=== PATIENT | female | born 1995 | race Caucasian/White ===

== ENCOUNTER 2022-02-15 10:19 | Outpatient (CLI) | payer BC, SELFPAY ==
--- NOTE | 2022-02-15 10:38 | US_ITS ---
WS: [id number] ULTRASOUND LEFT BREAST HISTORY: LT SIDE BREAST LUMP 9 O'CLOCK COMPARISON: None available. TECHNIQUE: 2-D and Doppler. There is no underlying abnormality near the 8:00 or 9:00 axis to correspond to the palpable nodule. N o mass identified. No skin thickening. US/US breast LT limited* [id number] IMPRESSION: BI-RADS: 1-Negative FOLLOW-UP: See Report No additional imaging or follow-up necessary. No ultrasound abnormality LEFT br east.
== END 2022-02-15 10:20 | disposition home or self-care (01) ==
LOC: RAD 10:28
PROVIDERS: Visit Provider Family Medicine
DX: N63.25 Unspecified lump in the left breast, overlapping quadrants (principal)
CPT/HCPCS: 76642

== ENCOUNTER 2023-10-30 20:03 | Emergency (ER) | payer BC, SELFPAY ==
[2023-10-30] VITALS (7 sets, daily range): BP systolic 122–169; BP diastolic 75–109; PULSE 75–134; RESP 18; TEMP 36.9; O2SAT 95–99; BMI 32.3
--- NOTE | 2023-10-30 20:47 | ECG_ITS ---
[facility] Test Date: 2023-10-30 Pat Name: Naa Henderson Department: Room: Gender: Female Blue Split Trimmer: : 1995 Requested By: Demetri Thomas Order Number: [id number] Faith MD: Cuba Aguero M.D. Measurements Intervals [place] Rate: 76 P: 54 NE: 147 QRS: -9 QRSD: 106 T: 34 QT: 309 QTc: 349 Interpretive Statements SINUS RHYTHM LOW QRS VOLTAGE IN PRECORDIAL LEADS [QRS DEFLECTION < 1.0 mV IN CHEST LEADS] INCOMPLETE RIGHT BUNDLE BRANCH BLOCK [90+ ms QRS DURATION, TERMINAL R IN V1/V2, 40+ ms S IN I/aVL/V4/V5/V6] NONSPECIFIC T-WAVE ABNORMALITY No previous ECG available for comparison Electronically Signed On 10-30-2023 21:49:00 CDT by Cuba Aguero M.D. [id number]
[2023-10-30 21:51] LABS: Basophils # 0.1 10^3/uL (0.0-0.1); Basophils % 0.5 %; Eosinophils # 0.1 10^3/uL (0.0-0.8); Eosinophils % 0.8 %; Hematocrit 41.6 % (36-47); Lymphocytes % 30.2 %; Mean Corpuscular HGB Conc 33.7 g/dL (30-55); Mean Corpuscular Volume 86.3 fl (85-98); Mean Platelet Volume 8.7 fL (7.4-10.4); Monocytes # 0.7 10^3/uL (0.2-0.9); Neutrophils % 63.2 %; Nucleated Red Blood Cells % 0 %; Platelet Count 353 10^3/cmm (157-399); Red Blood Count 4.82 10^6/uL (3.85-5.65); Red Cell Distribution Width 11.8 % (12.1-15.1); White Blood Count 13.26 10^3/uL (3.29-11.43)
[2023-10-30 22:04] LABS: HCG, Serum Qual Negative (Negative)
[2023-10-30] MEDS: sodium chloride 0.9% 1,000 ML 999 ML IV (22:05)
--- NOTE | 2023-10-30 22:07 | ED_ITS ---
Documented by User: SHAKIR West 10/31/23 00:06 HPI - Dizziness 2 General: Chief Complaint: Dizziness Stated Complaint: dizzy, light headed, headache Time Seen by Provider: 10/30/23 21:18 Source: patient Mode of arrival: ambulatory Limitations: no limitations History of Present Illness: HPI Narrative: Patient is a 28-year-old female who presents to the emergency department planing of dizziness onset 2 days. Patient reports she had an initial episode on Monday of dizziness associated with nausea and a headache. She states this episode resolved spontaneously and she was okay yesterday. Today she had another episode of dizziness, as she states it was a combination of room spinning and lightheadedness. She states the dizziness is worse when she stands up. She also associated an occipital headache as well as associated nausea. She reports history of migraine headaches and felt that this 1 was similar, just worse than usual. It is improved at this time and she no longer feels nauseous or dizzy. She does report a history of anxiety and panic attacks. She denies possibility of . She does note that she started a new control medication last week. She denies any other medication changes at this time. She further denies any breathing difficulties, chest pains, palpitations, vomiting, visual changes, distal neurological complaints, or any other symptoms. She also comments that her fluid intake is inadequate and she is trying to work on it. MD elicited complaint: dizziness Onset (ago): day(s) (2) Timing: sudden onset and intermittent Severity: moderate Description: room spinning and lightheadedness Context: change in medication History of similar symptoms: Yes Exacerbating factors: change in body position Associated symptoms: Reports headache(s) and nausea; Denies chest pain, chills, palpitations or vomiting Associated neuro symptoms: Deny numbness in extremities Review of Systems 2 General: Reports: 10 or more systems reviewed and unremarkable except in HPI and below Const: Denies: fever(s), chills or fatigue Eyes: Denies: change in vision ENMT: Denies: throat pain, ear or mastoid pain or nasal discharge Card: Reports: lightheadedness; Denies: chest pain, palpitations or swelling of feet/ankles Resp: Denies: dyspnea, productive cough or wheezing GI: Reports: nausea; Denies: abdominal pain, vomiting, diarrhea or constipation : Denies: flank pain, difficulty voiding, dysuria or urinary frequency Musc: Denies: neck pain, back pain or joint pain Skin/Breast: Denies: rash Neuro: Reports: headache(s) and dizziness; Denies: numbness in extremities or weakness in extremities Physical Exam 2 Const: COMMON NORMALS: no acute distress, patient oriented x3 and no limitations GENERAL APPEARANCE: cooperative, comfortable and well developed ORIENTATION/CONSCIOUSNESS: Yes awake, Yes oriented to person, Yes oriented to place and Yes oriented to time HENMT: COMMON NORMALS: normocephalic, atraumatic, hearing grossly normal bilaterally, external ears normal, EAC's normal, TM's normal bilaterally and Normal external nose present HEAD & SCALP: normocephalic and atraumatic F ROSENDO & SINUS: normal facial exam NOSE: Normal external nose present E XTERNAL EAR: Yes external ears normal EXTERNAL AUDITORY CANAL: EAC's normal TYMPANIC MEMBRANE: TM's normal bilaterally Eye: COMMON NORMALS: Equal, round and reactive pupils present, EOMs intact bilaterally and conjunctivae normal CONJUNCTIVA: Yes conjunctivae normal P UPIL: Yes Equal, round and reactive pupils present Neck/C-Spine: COMMON NORMALS: full ROM, supple and no JVD Resp: COMMON NORMALS: normal respiratory effort, No retractions, No use of accessory muscles and clear to auscultation bilaterally AUSCULTATION: clear to auscultation bilaterally Cardio: COMMON NORMALS: no JVD, regular rate, regular rhythm, No clicks present (Cardio), No murmurs present (Cardio) and No rub (Cardio) RATE: r egular rate RHYTHM: regular rhythm GI: COMMON NORMALS: Normal to inspection, nondistended, normoactive bowel sounds present, Soft to palpation and non-tender AUSCULTATION: Yes normoactive bowel sounds PALPATION: Yes Soft to palpation Extremity: COMMON NORMALS: normal to inspection, full ROM and capillary refill normal Neuro: COMMON NORMALS: patient oriented x3, CN's II-XII intact bilaterally, moves all extremities, no focal motor deficits and no sensory deficits noted SENSORIUM/ORIENTATION: Yes oriented to person, Yes oriented to place and Yes oriented to time Psych: COMMON NORMALS: mental status grossly normal and Normal thought process present THOUGHT PROCESS: Normal thought process present Skin: COMMON NORMALS: no rashes or lesions noted GENERAL SKIN EXAM: no rashes or lesions noted Course 2 Vital Signs: Vital signs: Vital Signs Temperature 98.4 F 10/30/23 20:27 Pulse Rate 80 10/31/23 00:15 Respiratory Rate 16 10/31/23 00:15 Blood Pressure 150/93 10/31/23 00:15 Pulse Oximetry 93 10/31/23 00:15 Oxygen Delivery Me thod Room Air 10/30/23 23:30 MDM - Dizziness Medical Decision Making Patient seen and evaluated today for 2 separate episodes of nausea, dizziness, and headache. On arrival patient's vitals unremarkable. Examination also unremarkable as patient was neurologically intact. Laboratory examination essentially unremarkable, with a normal UA. EKG unremarkable and showed no signs of any arrhythmias. Patient's orthostatics are negative. Started patient on a liter of fluids. Upon recheck patient has no symptoms and does report to me a history of anxiety for which she is not currently on medications. I believe this may potentially play a role, and her episodes of dizziness are probably due to a BPPV versus other benign causes of dizziness such as a vasovagal scenario or dehydration. I instructed the patient on reasons to return, and that she should follow-up with her primary care provider to potentially discuss starting something for her anxiety. Patient agrees with this plan and will be discharged home. Lab Data 10/30/23 21:47 10/30/23 21:47 Laboratory Results WBC 13.26 10^3/uL (3.29-11.43) H 10/30/23 21:47 RBC 4.82 10^6/uL (3.85-5.65) 10/30/23 21:47 Hgb 14.00 g/dL (11.27-16.99) 10/30/23 21:47 Hct 41.6 % (36-47) 10/30/23 21:47 MCV 86.3 fl (85-98) 10/30/23 21:47 MCH 29.0 pg (27-33) 10/30/23 21:47 MCHC 33.7 g/dL (30-55) 10/30/23 21:47 RDW 11.8 % (12.1-15.1) L 10/30/23 21:47 Plt Count 353 10^3/cmm (157-399) 10/30/23 21:47 MPV 8.7 fL (7.4-10.4) 10/30/23 21:47 Neut % (Auto) 63.2 % 10/30/23 21:47 Lymph % (Auto) 30.2 % 10/30/23 21:47 [place] % (Auto) 5.0 % 10/30/23 21:47 Eos % (Auto) 0.8 % 10/30/23 21:47 Baso % (Auto) 0.5 % 10/30/23 21:47 Neut # (Auto) 8.40 10^3/uL (1.8-7.7) H 10/30/23 21:47 Lymph # (Auto) 4.0 10^3/uL (0.8-4.8) 10/30/23 21:47 [place] # (Auto) 0.7 10^3/uL (0.2-0.9) 10/30/23 21:47 Eos # (Auto) 0.1 10^3/uL (0.0-0.8) 10/30/23 21:47 Baso # (Auto) 0.1 10^3/uL (0.0-0.1) 10/30/23 21:47 Nucleated RBC % (auto) 0 % 10/30/23 21: Nucleated RBCs # 0.0 /100WBC 10/30/23 21:47 Sodium 141 mmol/L (136-145) 10/30/23 21:47 Potassium 4.1 mmol/L (3.5-5.1) 10/30/23 21:47 Chloride 105 mmol/L (98-107) 10/30/23 21:47 Carbon Dioxide 24 mmol/L (22-29) 10/30/23 21:47 Anion Gap 16.1 (5-19) 10/30/23 21:47 BUN 7 mg/dL (6-20) 10/30/23 21:47 Creatinine 0.6 mg/dL (0.5-0.9) 10/30/23 21:47 GFR Calculation 120.8 mL/min (90-130) 10/30/23 21:47 Glucose 101 mg/dL (65-115) 10/30/23 21:47 Calculated Osmolality 290 mOsm/kg (285-295) 10/30/23 21:47 Calcium 9.8 mg/dL (8.5-10.5) 10/30/23 21:47 Total Bilirubin 0.2 mg/dL (0.15-1.2) 10/30/23 21:47 AST 20 U/L (0-32) 10/30/23 21:47 ALT 36 U/L (0-33) H 10/30/23 21:47 Alkaline Phosphatase 73 U/L (35-105) 10/30/23 21:47 Total Protein 8.0 g/dL (6.6-8.7) 10/30/23 21:47 Albumin 4.5 g/dL (3.5-5.2) 10/30/23 21:47 Globulin 3.5 g/dL (1.3-4.6) 10/30/23 21:47 HCG, Qual Negative (Negative) 10/30/23 21:47 Urine Color Yellow (Yellow) 10/30/23 22:42 Urine Appearance Clear (CLEAR) 10/30/23 22:42 Urine pH 6 (5-7) 10/30/23 22:42 Ur Specific [place] 1.015 (1.005-1.030) 10/30/23 22:42 Urine Protein Neg (Negative) 10/30/23 22:42 Urine Glucose (UA) Norm (Normal) 10/30/23 22:42 Urine Ketones Negative (Negative) 10/30/23 22:42 Urine Blood 3+ (Negative) H 10/30/23 22:42 Urine Nitrate Negative (Negative) 10/30/23 22:42 Urine Bilirubin Neg (Negative) 10/30/23 22:42 Urine Urobilinogen Neg mg/dL (Negative) 10/30/23 22:42 Ur Leukocyte Esterase Negative (Negative) 10/30/23 22:42 Urine RBC 15-25 /hpf (0-2) H 10/30/23 22:42 Urine WBC 5-10 /hpf (0-5) H 10/30/23 22:42 Ur Squamous Epith Cells 0-4 /hpf (0-5) H 10/30/23 22:42 Amorphous Sediment Not Reportable 10/30/23 22:42 Urine Bacteria Trace /hpf (NONE) 10/30/23 22:42 No radiology studies performed this visit Discharge Plan Discharge Patient Disposition: Home Clinical Impression: Benign paroxysmal positional vertigo Qualifiers: Laterality: unspecified laterality Qualified Code(s): H81.10 - Benign paroxysmal vertigo, unspecified ear Condition: Stable Discharge Orders: Discharge ED (Routine); Ordered 10/30/23 Ordered By: Anjel Santizo Discharge Diet: Usual diet Discharge Activity: Increase activity as tolerated Patient Instructions: Benign Paroxysmal Positional Vertigo (ED) Activity Restrictions/Additional Instructions: Increase your fluid intake. May take [id number] antiemetics or antihistamines for any future episodes of dizziness. Follow-up with your primary care provider as needed. Return with any new or concerning symptoms. Stand Alone Forms: Work/School Release Coding Level of Care Code ED Apartment Manager for Chg Fwd Documented by User: Charlie Pérez DO 10/31/23 05:34 HPI - Dizziness 2 General: Chief Complaint: Dizziness Stated Complaint: dizzy, light headed, headache Time Seen by Provider: 10/30/23 21:18 Course 2 Vital Signs: Vital signs: Vital Signs Temperature 98.4 F 10/30/23 20:27 Pulse Rate 80 10/31/23 00:15 Respiratory Rate 16 10/31/23 00:15 Blood Pressure 150/93 10/31/23 00:15 Pulse Oximetry 93 10/31/23 00:15 Oxygen Delivery Me thod Room Air 10/30/23 23:30 MDM - Dizziness Medical Decision Making Patient seen and evaluated today for 2 separate episodes of nausea, dizziness, and headache. On arrival patient's vitals unremarkable. Examination also unremarkable as patient was neurologically intact. Laboratory examination essentially unremarkable, with a normal UA. EKG unremarkable and showed no signs of any arrhythmias. Patient's orthostatics are negative. Started patient on a liter of fluids. Upon recheck patient has no symptoms and does report to me a history of anxiety for which she is not currently on medications. I believe this may potentially play a role, and her episodes of dizziness are probably due to a BPPV versus other benign causes of dizziness such as a vasovagal scenario or dehydration. I instructed the patient on reasons to return, and that she should follow-up with her primary care provider to potentially discuss starting something for her anxiety. Patient agrees with this plan and will be discharged home. Chart reviewed. Lab Data 10/30/23 21:47 10/30/23 21:47 Laboratory Results WBC 13.26 10^3/uL (3.29-11.43) H 10/30/23 21:47 RBC 4.82 10^6/uL (3.85-5.65) 10/30/23 21:47 Hgb 14.00 g/dL (11.27-16.99) 10/30/23 21:47 Hct 41.6 % (36-47) 10/30/23 21: MCV 86.3 fl (85-98) 10/30/23 21: MCH 29.0 pg (27-33) 10/30/23 21:47 MCHC 33.7 g/dL (30-55) 10/30/23 21:47 RDW 11.8 % (12.1-15.1) L 10/30/23 21:47 Plt Count 353 10^3/cmm (157-399) 10/30/23 21:47 MPV 8.7 fL (7.4-10.4) 10/30/23 21:47 Neut % (Auto) 63.2 % 10/30/23 21:47 Lymph % (Auto) 30.2 % 10/30/23 21:47 [place] % (Auto) 5.0 % 10/30/23 21:47 Eos % (Auto) 0.8 % 10/30/23 21:47 Baso % (Auto) 0.5 % 10/30/23 21:47 Neut # (Auto) 8.40 10^3/uL (1.8-7.7) H 10/30/23 21:47 Lymph # (Auto) 4.0 10^3/uL (0.8-4.8) 10/30/23 21:47 [place] # (Auto) 0.7 10^3/uL (0.2-0.9) 10/30/23 21:47 Eos # (Auto) 0.1 10^3/uL (0.0-0.8) 10/30/23 21:47 Baso # (Auto) 0.1 10^3/uL (0.0-0.1) 10/30/23 21:47 Nucleated RBC % (auto) 0 % 10/30/23 21:47 Nucleated RBCs # 0.0 /100WBC 10/30/23 21:47 Sodium 141 mmol/L (136-145) 10/30/23 21:47 Potassium 4.1 mmol/L (3.5-5.1) 10/30/23 21:47 Chloride 105 mmol/L (98-107) 10/30/23 21:47 Carbon Dioxide 24 mmol/L (22-29) 10/30/23 21:47 Anion Gap 16.1 (5-19) 10/30/23 21:47 BUN 7 mg/dL (6-20) 10/30/23 21:47 Creatinine 0.6 mg/dL (0.5-0.9) 10/30/23 21:47 GFR Calculation 120.8 mL/min (90-130) 10/30/23 21:47 Glucose 101 mg/dL (65-115) 10/30/23 21:47 Calculated Osmolality 290 mOsm/kg (285-295) 10/30/23 21:47 Calcium 9.8 mg/dL (8.5-10.5) 10/30/23 21:47 Total Bilirubin 0.2 mg/dL (0.15-1.2) 10/30/23 21:47 AST 20 U/L (0-32) 10/30/23 21:47 ALT 36 U/L (0-33) H 10/30/23 21:47 Alkaline Phosphatase 73 U/L (35-105) 10/30/23 21:47 Total Protein 8.0 g/dL (6.6-8.7) 10/30/23 21:47 Albumin 4.5 g/dL (3.5-5.2) 10/30/23 21:47 Globulin 3.5 g/dL (1.3-4.6) 10/30/23 21:47 HCG, Qual Negative (Negative) 10/30/23 21:47 Urine Color Yellow (Yellow) 10/30/23 22:42 Urine Appearance Clear (CLEAR) 10/30/23 22:42 Urine pH 6 (5-7) 10/30/23 22:42 Ur Specific [place] 1.015 (1.005-1.030) 03/25/24 22:42 Urine Protein Neg (Negative) 10/30/23 22:42 Urine Glucose (UA) Norm (Normal) 10/30/23 22:42 Urine Ketones Negative (Negative) 10/30/23 22:42 Urine Blood 3+ (Negative) H 10/30/23 22:42 Urine Nitrate Negative (Negative) 10/30/23 22:42 Urine Bilirubin Neg (Negative) 10/30/23 22:42 Urine Urobilinogen Neg mg/dL (Negative) 10/30/23 22:42 Ur Leukocyte Esterase Negative (Negative) 10/30/23 22:42 Urine RBC 15-25 /hpf (0-2) H 10/30/23 22:42 Urine WBC 5-10 /hpf (0-5) H 10/30/23 22:42 Ur Squamous Epith Cells 0-4 /hpf (0-5) H 10/30/23 22:42 Amorphous Sediment Not Reportable 10/30/23 22:42 Urine Bacteria Trace /hpf (NONE) 10/30/23 22:42 Discharge Plan Discharge Patient Disposition: Home Clinical Impression: Benign paroxysmal positional vertigo Qualifiers: Laterality: unspecified laterality Qualified Code(s): H81.10 - Benign paroxysmal vertigo, unspecified ear Condition: Stable Discharge Orders: Discharge ED (Routine); Ordered 10/30/23 Ordered By: Anjel Santizo Discharge Diet: Usual diet Discharge Activity: Increase activity as tolerated Patient Instructions: Benign Paroxysmal Positional Vertigo (ED) Activity Restrictions/Additional Instructions: Increase your fluid intake. May take [id number] antiemetics or antihistamines for any future episodes of dizziness. Follow-up with your primary care provider as needed. Return with any new or concerning symptoms. Stand Alone Forms: Work/School Release Coding Level of Care Code ED Apartment Manager for David Amaya
[2023-10-30 22:10] LABS: Alanine Aminotransferase 36 U/L (0-33); Albumin Level 4.5 g/dL (3.5-5.2); Alkaline Phosphatase 73 U/L (35-105); Anion Gap 16.1 (5-19); Aspartate Amino Transferase 20 U/L (0-32); Blood Urea Nitrogen 7 mg/dL (6-20); Calcium 9.8 mg/dL (8.5-10.5); Carbon Dioxide 24 mmol/L (22-29); Chloride 105 mmol/L (98-107); Creatinine Clr Calc Pharmacy 161.2021; Globulin 3.5 g/dL (1.3-4.6); Glomerular Filtration Rate 120.8 mL/min (90-130); Glucose 101 mg/dL (65-115); Osmolality Calculated 290 mOsm/kg (285-295); Potassium 4.1 mmol/L (3.5-5.1); Sodium 141 mmol/L (136-145); Total Bilirubin 0.2 mg/dL (0.15-1.2)
[2023-10-30 22:57] LABS: Specific Gravity, Urine 1.015 (1.005-1.030); Urine Appearance Clear (CLEAR); Urine Color Yellow (Yellow); pH Urine 6 (5-7)
[2023-10-30 22:58] LABS: Add Urine Culture? Yes; Add Urine Microscopic? YES; Bacteria Urine TRACE /hpf; Bilirubin Urine Neg (Negative); Blood Urine 3+ (Negative); Glucose Urine UA Norm (Normal); Ketones Urine Negative (Negative); Leukocyte Esterase Urine Negative (Negative); Nitrate Urine Negative (Negative); Protein Urine Neg (Negative); RBC Urine 15-25 /hpf (0-2); Squamous Epithelial Cell Urine 0-4 /hpf (0-5); Urobilinogen Urine Neg (Negative)
[2023-10-31 00:15] VITALS: BP 150/93; PULSE 80; RESP 16; O2SAT 93
== END 2023-10-31 00:17 | disposition home or self-care (01) ==
PROVIDERS: Emergency Medicine; Emergency Provider Physician Assistant
DX: H81.10 Benign paroxysmal vertigo, unspecified ear (principal)
CPT/HCPCS: 80053; 81001; 84703; 85025; 87086; 93005; 99284; J7030

== ENCOUNTER 2023-11-25 16:30 | Emergency (ER) | payer BC, SELFPAY ==
[2023-11-25 16:33] VITALS: BP 163/86; PULSE 83; RESP 16; TEMP 36.6; O2SAT 98
--- NOTE | 2023-11-25 16:54 | ED_ITS ---
HPI - Anxiety 2 General: Chief Complaint: Anxiety Stated Complaint: Anxiety Time Seen by Provider: 11/25/23 16:38 Source: patient Mode of arrival: ambulatory Limitations: no limitations History of Present Illness: 28-year-old female states she been havin g severe anxiety states she been having anxiety attacks over the last month they are getting progressively worse she states she has not seen her PCP about this and is not on any meds. States today she is felt anxious all days had decreased appetite felt nauseous like she cannot vomit she denies any pain anywhere denies any fever. Associated symptoms: Reports nausea; Deny chest pain, chills, fever(s), headache(s) or vomiting Review of Systems 2 Const: Reports: change in appetite; Denies: fever(s), chills or body aches ENMT: Denies: throat pain or dental pain Card: Denies: chest pain Resp: Denies: dyspnea GI: Reports: nausea; Denies: abdominal pain, vomiting or diarrhea Musc: Denies: neck pain or back pain Skin/Breast: Denies: rash Neuro: Denies: headache(s) Psych: Reports: anxiety; Denies: depression Physical Exam 2 Const: COMMON NORMALS: no acute distress, patient oriented x3 and healthy appearing HENMT: COMMON NORMALS: normocephalic and atraumatic HEAD & SCALP: n ormocephalic and atraumatic Eye: COMMON NORMALS: conjunctivae normal CONJUNCTIVA: Yes conjunctivae normal Neck/C-Spine: COMMON NORMALS: full ROM and supple Chest: COMMONS NORMALS: normal inspection of the chest Resp: COMMON NORMALS: normal respiratory effort, No retractions, No use of accessory muscles and clear to auscultation bilaterally AUSCULTATION: clear to auscultation bilaterally Cardio: COMMON NORMALS: regular rate, regular rhythm and No murmurs present (Cardio) RATE: regular rate RHYTHM: regular rhythm GI: COMMON NORMALS: Normal to inspection, nondistended, normoactive bowel sounds present, Soft to palpation, non-tender and no masses PALPATION: Yes Soft to palpation Extremity: COMMON NORMALS: normal to inspection and full ROM Neuro: COMMON NORMALS: patient oriented x3, moves all extremities and no focal motor deficits Psych: COMMON NORMALS: mental status grossly normal, Normal thought process present and cooperative THOUGHT PROCESS: Normal thought process present Skin: COMMON NORMALS: no rashes or lesions noted and no wounds GENERAL SKIN EXAM: no rashes or lesions noted Course 2 Vital Signs: Vital signs: Vital Signs Temperature 97.9 F 11/25/23 16:33 Pulse Rate 83 11/25/23 16:33 Respiratory Rate 16 11/25/23 16:33 Blood Pressure 163/86 11/25/23 16:33 Pulse Oximetry 98 11/25/23 16:33 Oxygen Delivery Me thod Room Air 11/25/23 16:33 MDM - Anxiety Medical Decision Making Patient presents here with nausea she is also been anxious she is well-appearing here her vital signs here are all normal we will start her on Vistaril along with Zofran she is follow-up with PCP. Medical Records I reviewed the patient's medical records. Lab Data I reviewed the patient's lab results. 11/25/23 16:57 11/25/23 16:57 Laboratory Results WBC 11.28 10^3/uL (3.29-11.43) 11/25/23 16:57 RBC 4.87 10^6/uL (3.85-5.65) 11/25/23 16:57 Hgb 14.10 g/dL (11.27-16.99) 11/25/23 16:57 Hct 41.9 % (36-47) 11/25/23 16:57 MCV 86.0 fl (85-98) 11/25/23 16:57 MCH 29.0 pg (27-33) 11/25/23 16:57 MCHC 33.7 g/dL (30-55) 11/25/23 16:57 RDW 11.4 % (12.1-15.1) L 11/25/23 16:57 Plt Count 328 10^3/cmm (157-399) 11/25/23 16:57 MPV 8.8 fL (7.4-10.4) 11/25/23 16:57 Neut % (Auto) 63.2 % 11/25/23 16:57 Lymph % (Auto) 31.8 % 11/25/23 16:57 [place] % (Auto) 4.2 % 11/25/23 16:57 Eos % (Auto) 0.3 % 11/25/23 16:57 Baso % (Auto) 0.3 % 11/25/23 16:57 Neut # (Auto) 7.14 10^3/uL (1.8-7.7) 11/25/23 16:57 Lymph # (Auto) 3.6 10^3/uL (0.8-4.8) 11/25/23 16:57 [place] # (Auto) 0.5 10^3/uL (0.2-0.9) 11/25/23 16:57 Eos # (Auto) 0.0 10^3/uL (0.0-0.8) 11/25/23 16:57 Baso # (Auto) 0.0 10^3/uL (0.0-0.1) 11/25/23 16:57 Nucleated RBC % (auto) 0 % 11/25/23 16:57 Nucleated RBCs # 0.0 /100WBC 11/25/23 16:57 Sodium 140 mmol/L (136-145) 11/25/23 16:57 Potassium 3.7 mmol/L (3.5-5.1) 11/25/23 16:57 Chloride 104 mmol/L (98-107) 11/25/23 16:57 Carbon Dioxide 27 mmol/L (22-29) 11/25/23 16:57 Anion Gap 12.7 (5-19) 11/25/23 16:57 BUN 8 mg/dL (6-20) 11/25/23 16:57 Creatinine 0.6 mg/dL (0.5-0.9) 11/25/23 16:57 GFR Calculation 120.8 mL/min (90-130) 11/25/23 16:57 Calculated Osmolality 289 mOsm/kg (285-295) 11/25/23 16:57 Calcium 9.9 mg/dL (8.5-10.5) 11/25/23 16:57 Total Bilirubin 0.4 mg/dL (0.15-1.2) 11/25/23 16:57 AST 24 U/L (0-32) 11/25/23 16:57 ALT 32 U/L (0-33) 11/25/23 16:57 Alkaline Phosphatase 82 U/L (35-105) 11/25/23 16:57 Total Protein 8.1 g/dL (6.6-8.7) 11/25/23 16:57 Albumin 4.7 g/dL (3.5-5.2) 11/25/23 16:57 Globulin 3.4 g/dL (1.3-4.6) 11/25/23 16:57 Lipase 32 U/L (13-60) 11/25/23 16:57 TSH 1.58 uIU/mL (0.27-4.20) 11/25/23 16:57 HCG, Qual Negative (Negative) 11/25/23 16:57 Urine Color Yellow (Yellow) 11/25/23 16:57 Urine Appearance Clear (CLEAR) 11/25/23 16:57 Urine pH 5 (5-7) 11/25/23 16:57 Ur Specific [place] 1.020 (1.005-1.030) 11/25/23 16:57 Urine Protein Neg (Negative) 11/25/23 16:57 Urine Glucose (UA) Norm (Normal) 11/25/23 16:57 Urine Ketones 2+ (Negative) H 11/25/23 16:57 Urine Blood Neg (Negative) 11/25/23 16:57 Urine Nitrate Negative (Negative) 11/25/23 16:57 Urine Bilirubin Neg (Negative) 11/25/23 16:57 Urine Urobilinogen Norm mg/dL (Negative) 11/25/23 16:57 Ur Leukocyte Esterase Negative (Negative) 11/25/23 16:57 All radiology interpretation(s) finalized by discharge EKG Data EKG 1: I personally reviewed and interpreted this EKG as follows: EKG interpretation date: 11/25/23 EKG interpretation time: 16:56 Interpretation: sinus tach hr [address] or t wave abnormalities qrs 105 qtc 334 Discharge Plan Discharge Patient Disposition: Home Clinical Impression: Anxiety, Nausea Condition: Stable Prescriptions: New ondansetron 4 mg tablet,disintegrating 4 mg PO Q6H PRN (Reason: nausea and vomiting) Qty: 14 0RF Vistaril 25 mg capsule 25 mg PO Q8H PRN (Reason: anxiety) Qty: 14 0RF Discharge Orders: Discharge ED (Routine); Ordered 11/25/23 Ordered By: Demetri Thomas Discharge Diet: Advance as tolerated Discharge Activity: Resume usual activity Patient Instructions: Anxiety (ED) Coding Level of Care Code ED Convolute Tube Winder for Chg Jose Luis
--- NOTE | 2023-11-25 16:56 | ECG_ITS ---
[facility] Test Date: 2023-11-25 Pat Name: Naa Henderson Department: Room: Gender: Female Route Carrier: : 1995 Requested By: Demetri Thomas Order Number: [id number] Faith MD: Júnior Perdomo M.D. Measurements Intervals [place] Rate: 100 P: 69 [place]: 158 QRS: 22 QRSD: 105 T: 83 QT: 277 QTc: 357 Interpretive Statements SINUS TACHYCARDIA LOW QRS VOLTAGE IN PRECORDIAL LEADS [QRS DEFLECTION < 1.0 mV IN CHEST LEADS] INCOMPLETE RIGHT BUNDLE BRANCH BLOCK [90+ ms QRS DURATION, TERMINAL R IN V1/V2, 40+ ms S IN I/aVL/V4/V5/V6] ABNORMAL RHYTHM ECG Compared to ECG 10/30/2023 21:12:18 Sinus rhythm no longer present T-wave abnormality no longer present Electronically Signed On 11-26-2023 8:11:48 CDT by Júnior Perdomo M.D. [id number]
[2023-11-25] MEDS: sodium chloride 0.9% 1,000 ML 999 ML IV (16:58)
--- NOTE | 2023-11-25 17:02 | XRR_ITS ---
PROCEDURE INFORMATION: Exam: XR Chest Exam date and time: 11/25/2023 5:47 PM Age: 28 years old Clinical indication: Shortness of breath; Patient HX: SOB; Palpitations TECHNIQUE: Imaging protocol: Radiologic exam of the chest. Views: 1 view. COMPARISON: No relevant prior studies available. FINDINGS: Lungs: Lungs are clear bilaterally. Pleural spaces: No pleural effusion. No pneumothorax. Heart/Mediastinum: The cardiac silhouette and mediastinal contours are unremarkable. Bones/joints: Unremarkable for age. XR/XR chest 1V portable [id number] IMPRESSION: No acute cardiopulmonary process.
[2023-11-25 17:04] LABS: Add Urine Microscopic? NO; Basophils % 0.3 %; Charge for UA Resulting for Rev; Eosinophils % 0.3 %; Hematocrit 41.9 % (36-47); Lymphocytes # 3.6 10^3/uL (0.8-4.8); Lymphocytes % 31.8 %; Mean Corpuscular HGB Conc 33.7 g/dL (30-55); Mean Platelet Volume 8.8 fL (7.4-10.4); Monocytes # 0.5 10^3/uL (0.2-0.9); Monocytes % 4.2 %; Neutrophils # 7.14 10^3/uL (1.8-7.7); Neutrophils % 63.2 %; Nucleated Red Blood Cells % 0 %; Platelet Count 328 10^3/cmm (157-399); Red Blood Count 4.87 10^6/uL (3.85-5.65); Red Cell Distribution Width 11.4 % (12.1-15.1); White Blood Count 11.28 10^3/uL (3.29-11.43)
[2023-11-25 17:08] LABS: Bilirubin Urine Neg (Negative); Blood Urine Neg (Negative); Glucose Urine UA Norm (Normal); Ketones Urine 2+ (Negative); Leukocyte Esterase Urine Negative (Negative); Nitrate Urine Negative (Negative); Protein Urine Neg (Negative); Urine Appearance Clear (CLEAR); Urine Color Yellow (Yellow); Urobilinogen Urine Norm (Negative); pH Urine 5 (5-7)
[2023-11-25] MEDS: LORazepam 2 mg/mL INJ 10 mL MDV 1 MG IVP (17:13)
[2023-11-25 17:17] LABS: HCG, Serum Qual Negative (Negative)
[2023-11-25 17:31] LABS: Alanine Aminotransferase 32 U/L (0-33); Albumin Level 4.7 g/dL (3.5-5.2); Alkaline Phosphatase 82 U/L (35-105); Anion Gap 12.7 (5-19); Aspartate Amino Transferase 24 U/L (0-32); Blood Urea Nitrogen 8 mg/dL (6-20); Calcium 9.9 mg/dL (8.5-10.5); Carbon Dioxide 27 mmol/L (22-29); Chloride 104 mmol/L (98-107); Creatinine Clr Calc Pharmacy 161.2021; Globulin 3.4 g/dL (1.3-4.6); Glomerular Filtration Rate 120.8 mL/min (90-130); Glucose 118 mg/dL (65-115); Lipase 32 U/L (13-60); Osmolality Calculated 289 mOsm/kg (285-295); Potassium 3.7 mmol/L (3.5-5.1); Sodium 140 mmol/L (136-145); Thyroid Stimulating Hormone 1.58 uIU/mL (0.27-4.20); Total Bilirubin 0.4 mg/dL (0.15-1.2); Total Protein 8.1 g/dL (6.6-8.7)
[2023-11-25 18:11] VITALS: RESP 15; O2SAT 100
== END 2023-11-25 18:13 | disposition home or self-care (01) ==
PROVIDERS: Emergency Provider Emergency Medicine
DX: F41.9 Anxiety disorder, unspecified (principal); R11.0 Nausea
CPT/HCPCS: 71045; 80053; 81003; 83690; 84443; 84703; 85025; 93005; 96361; 96374; 99285; J2060; J7030